=== PATIENT | male | born 1935 | race Caucasian/White ===

== ENCOUNTER 2019-04-23 17:08 | Emergency (ER) | payer MEDICARE ==
[~2019-04-23] VITALS: Ht 175.3 cm; Wt 86.2 kg
[2019-04-23 17:19] VITALS: BP_SYST 157
[2019-04-23 18:12] LABS: BASOPHILS # (AUTO) 0.1 K/uL (0.0-0.2); BASOPHILS % (AUTO) 0.8 % (0.0-2.0); EOSINOPHILS # (AUTO) 0.1 K/uL (0.0-0.4); EOSINOPHILS % (AUTO) 1.2 % (0.0-4.0); HEMATOCRIT 48.9 % (36-54); HEMOGLOBIN 16.4 g/dL (14.0-18.0); LYMPHOCYTES # (AUTO) 1.2 K/uL (1.0-5.5); LYMPHOCYTES % (AUTO) 11.3 % (20.5-51.5); MEAN CORPUSCULAR HEMOGLOBIN 32 pg (27-31); MEAN CORPUSCULAR HGB CONC 34 % (32-36); MEAN CORPUSCULAR VOLUME 96 fL (79.0-98.0); MONOCYTES # (AUTO) 0.8 K/uL (0.0-1.0); MONOCYTES % (AUTO) 7.5 % (1.7-9.3); NEUTROPHILS # (AUTO) 8.1 K/uL (1.8-7.7); NEUTROPHILS % (AUTO) 79.2 % (40.0-70.0); PLATELET COUNT (AUTO) 193 K/uL (130-430); RED CELL DISTRIBUTION WIDTH 15.8 % (9.0-15.0); WHITE BLOOD COUNT (AUTO) 10.3 K/uL (4.8-10.8)
[2019-04-23] MEDS: KETOROLAC TROMETHAMINE 30 MG VIAL IVP ONE (18:27)
[2019-04-23] MEDS: NS 500 ML IV ONE (18:27)
[2019-04-23 18:29] LABS: INR 1.6 (0.80-1.20); PROTHROMBIN TIME 15.6 SECS (9.5-12.5)
[2019-04-23 18:34] LABS: ANION GAP 8 (5-15); CALCIUM 9.5 mg/dL (8.4-11.0); CHLORIDE 102 mmol/L (98-107); CREATININE 1.22 mg/dL (0.55-1.30); GLUCOSE 120 mg/dL (70-99); POTASSIUM 4.6 mmol/L (3.5-5.1); SODIUM SERUM 137 mmol/L (136-145); UREA NITROGEN, BLOOD 28 mg/dL (8-21)
[2019-04-23 18:39] LABS: ALANINE AMINOTRANSFERASE 37 U/L (12-78); ALBUMIN 3.8 g/dL (3.4-4.8); ASPARTATE AMINOTRANSFERASE 61 U/L (10-37); TOTAL BILIRUBIN 1.4 mg/dL (0.0-1.0)
[2019-04-23 19:28] LABS: BILIRUBIN,URINE NEGATIVE (NEGATIVE); CLARITY/URINE CLEAR (CLEAR); COLOR,URINE YELLOW (YELLOW); GLUCOSE,URINE NEGATIVE (NEGATIVE); KETONES,URINE TRACE (NEGATIVE); LEUKOCYTE ESTERASE ,URINE NEGATIVE (NEGATIVE); NITRITE, URINE NEGATIVE (NEGATIVE); PH,URINE 6.5 (5.0-8.0); PROTEIN URINE NEGATIVE (NEGATIVE)
[2019-04-23 19:30] LABS: BLOOD, URINE TRACE (NEGATIVE)
[2019-04-23] MEDS ORDERED: POTA8TAB4 PO (20:39)
[2019-04-23] MEDS ORDERED: NEU100 PO (20:39)
[2019-04-23] MEDS ORDERED: FURO-150 PO (20:39)
[2019-04-23] MEDS ORDERED: LISI-600 PO (20:39)
[2019-04-23] MEDS ORDERED: RIVA20TA PO (20:39)
[2019-04-23] MEDS ORDERED: LORA10TA7 PO (20:39)
[2019-04-23] MEDS ORDERED: TAMS-11 PO (20:39)
[2019-04-23 20:46] LABS: BACTERIA,URINE FEW /HPF (None Seen); RBC,URINE 0-3 /HPF (0-3); WBC,URINE 0-3 /HPF (0-3)
[2019-04-23 20:47] LABS: MUCUS,URINE None Seen /LPF (None Seen)
[2019-04-23 22:19] VITALS: BP_SYST 144
== END 2019-04-23 22:12 | disposition home or self-care (01) ==
LOC: SED 17:08
DX: R10.84 Generalized abdominal pain (principal); I11.0 Hypertensive heart disease with heart failure; I50.9 Heart failure, unspecified; E78.00 Pure hypercholesterolemia, unspecified; Z90.89 Acquired absence of other organs; Z95.0 Presence of cardiac pacemaker
CPT/HCPCS: 36415; 71045; 74176; 76700; 80053; 81000; 81003; 83605; 84484; 85025; 85610; 85730; 87040; 87086; 93005; 96374; 99284; J1885; J7030